=== PATIENT | female | born 1985 | race Caucasian/White ===

== ENCOUNTER → 2017-07-24 | Day surgery (SDC) | payer OTHER, SELFPAY ==
[~2017-07-24] MED LIST: ACETAMINOPHEN 1000 MG/100 ML IV ONE; BACITRACIN 50,000 UNIT VIAL ONE; CEFAZOLIN SOD 1 GM VIAL ONE; DEXAMETHASONE SOD PHOS INJ 4 MG/ML VIAL ONE; FENTANYL CITRATE/PF 100MCG/2 ML INJ ONE; KETOROLAC TROMETHAMINE 30 MG/ML VIAL ONE; LIDOCAINE HCL 2% LOCAL INJ 5 ML SDV VIAL INJ ONE; MIDAZOLAM HCL 2 MG/2 ML VIAL ONE; MUPIROCIN 2% OINT 22 GM TUBE ONE; ONDANSETRON HCL INJ 2 MG/ML VIAL ONE; PROPOFOL IV EMULSION 10 MG/ML 20 ML VIAL ONE; ROCURONIUM BROMIDE 10 MG/ML 5ML VIAL ONE; SEVOFLURANE INHAL SOLN 250 ML PEN BTL ONE
--- NOTE | 2017-07-24 14:44 | Operative Report ---
DATE OF PROCEDURE: July 24, 2017 PREOPERATIVE DIAGNOSIS: Bilateral breast implant deflation. POSTOPERATIVE DIAGNOSES: Bilateral breast implant deflation, capsular contracture. PROCEDURE: Removal of bilateral breast implants, bilateral capsulotomies, and bilateral implant exchange. ANESTHESIA: General. HISTORY: The patient is a 35-year-old female who has saline-filled implants, which were placed approximately 10 years ago. Patient has noticed a progressive decline in the implant volume bilaterally. The risks, benefits and alternatives of treatment were discussed with the patient. She has signed the [employer] consent form for said procedure. DETAILS OF PROCEDURE: Patient was marked preoperatively in the holding area. She was brought to the operating theater. After the induction of adequate general anesthesia, she was prepped and draped in a supine position. A time out was performed. The procedure was begun by marking out the previous inframammary incisions. These were then measured out and lengthened to approximately 6 cm to allow placement of silicone gel implants. The incision under the right breast was made through the skin and subcutaneous tissues. All bleeding was controlled using electrocautery. The incision was deepened through the subcutaneous tissue until the capsule was identified. The capsule was incised, and the saline implant was identified. The saline implant was then removed from the right breast pocket, and is was noted to be markedly deflated. At this point, the pocket was inspected, and the upper hemispheric portion of the capsule was then incised using the electrocautery approximately 1.5 to 2 cm above the chest wall. The capsulotomies were performed into the soft tissues and the pectoralis major muscle. Bleeding was controlled using the electrocautery. At this point, once the capsule had been incised, a trial fit of a 450-mL sizer was performed. The trial sizer was placed into the right breast pocket, and the patient was sat up and assessed. It was noted that there were still some areas of the pocket which were tight and needed to be released. Patient was made supine, and the sizer was removed. Vertical capsulotomies were then performed in order to allow maximum expansion of the capsule and the soft tissues was done. The bleeding was controlled using the electrocautery. Once again, the sizer was placed into the right breast pocket and the patient sat up. Satisfactory contour around the implant sizer was noted, and the patient was then made supine. The sizer was removed and the pocket was inspected for hemostasis, which was made absolute using the electrocautery. The pocket was then irrigated with both an antibiotic-containing solution as well as a Betadine solution. At this point, a 450-mL, smooth, round, moderate profile implant was prepared per supervisor power reactor's specifications. Lot number and serial number are located within the patient's chart. The implant was then placed within the right breast pocket. The patient was then sat up, and satisfactory anatomic shape had been achieved. The patient was made supine, and the wound was then closed in layers utilizing 3-0 Monocryl in an interrupted simple fashion to approximate the capsule, and 4-0 Monocryl was used in interrupted buried fashion to approximate the deep subcutaneous tissues. Finally, a 5-0 Monocryl running subcuticular stitch was used to approximate the superficial soft tissues. The incision under the left breast was made through the skin and subcutaneous tissues. Bleeding was controlled using the electrocautery. The incision was deepened through the subcutaneous tissue and the capsule. The saline implant was identified. It was removed, and it, too, was noted to be markedly deflated. At this point, the 450-mL gel sizer was placed into the left breast pocket. The areas of capsulotomies were marked out. The sizer was then removed. Horizontal capsulotomies were performed approximately 2 cm above the chest wall in the upper hemispheric portion of the pocket. Vertical capsulotomies were then performed as well in order to allow maximal expansion. The soft tissues were made hemostatic using the electrocautery. At this point, the sizer was placed into the left breast pocket, and the patient was then sat up. It was noted that several adjustments to the pocket were required, and the patient was made supine and the sizer was then removed. The pocket was adjusted and allowed to increase in volume by making capsulotomies more laterally. Then the patient was resized with the sizer. She was sat up. When a satisfactory contour around the sizer was noted, patient was made supine. The sizer was removed, and the pocket was irrigated with bacteriostatic saline. Hemostasis was made absolute using electrocautery. The pocket was irrigated with antibiotic-containing solution as well as dilute Betadine. A 450-mL implant, smooth, round, moderate profile was placed into the left breast pocket. Lot number and serial number are located within the patient's chart. At this point, the wound was closed in layers using 3-0 Monocryl in interrupted simple fashion to approximate the capsule in the deep subcutaneous tissues, and 4-0 Monocryl was used in an interrupted buried fashion to approximate the superficial subcutaneous tissues. Finally, a 5-0 Monocryl running subcuticular stitch was used. The patient was sat up and assessed once again, and there was good symmetry as well as good contour around both implants without any areas of capsular tightness. The patient was made supine. Steri-Strips were applied to the incision, and sterile dressings were applied. Patient tolerated the procedure well and was brought to the recovery room in satisfactory condition and discharged with postoperative instruction sheet as well as a followup appointment. Job#: [id number]
== END | disposition home or self-care (01) ==
LOC: OR 05:19
PROVIDERS: ATTEND Plastic Surgery
DX: T85.49XA Other mechanical complication of breast prosthesis and implant, initial encounter (principal); T85.44XA Capsular contracture of breast implant, initial encounter; Y83.8 Other surgical procedures as the cause of abnormal reaction of the patient, or of later complication, without mention of misadventure at the time of the procedure
CPT/HCPCS: 19330; 19340; 19370; 81025; C1789; J0690; J2250